=== PATIENT | female | born 1935 | race Two or more races ===

== ENCOUNTER 2020-12-14 09:39 | Outpatient (CLI) | payer MEDICARE ==
--- NOTE | 2020-12-14 10:36 | DEXA Report ---
PROCEDURE: Dexa Spine and/or Hip INDICATIONS: OSTEOPOROSIS SCREENING TECHNIQUE: Dual energy x-ray absorptiometry (DXA) was performed on a AFAR System. Regions measur ed are the AP Spine, femoral neck, and if needed forearm. COMPARISON: None. FINDINGS: Lumbar Spine: Bone Mineral Density 0.956 g/cm/cm,T score -1.9. Left Hip: Bone Mineral Density 0.636 g/cm/cm,T score -3.0. Left Femoral Neck: Bone Mineral Density 0.597 g/cm/cm, T score -3.2. (T score greater or equal to -1.0: NORMAL) (T score from -1.1 to -2.4: OSTEOPENIA) (T score less than or equal to -2.5 to: OSTEOPOROSIS) Impression: Osteoporosis. Patients with diagnosis of osteoporosis or osteopenia should have regular bone mineral density assess ment. For those eligible for Medicare, routine testing is allowed once every 2 years. Testing frequ ency can be increased for patients who have rapidly progressing disease or for those who are receivin g medical therapy to restore bone mass. Reviewed by: Junito Leal MD on 12/14/2020 10:34 AM PDT Approved by: Junito Leal MD on 12/14/2020 10:34 AM PDT Station ID: [id number]
== END 2020-12-14 09:40 | disposition home or self-care (01) ==
LOC: DI 09:39
PROVIDERS: ATTEND Internal Medicine
DX: Z13.820 Encounter for screening for osteoporosis (principal); M81.0 Age-related osteoporosis without current pathological fracture

== ENCOUNTER 2022-10-22 09:29 | Outpatient (CLI) | payer MEDICARE ==
[2022-10-22 10:07] LABS: CREATININE,URINE 177.2 mg/dL; MICROALBUM/CREATININE RATIO,UR 38.9 ug/mg (<30.0); MICROALBUMIN,URINE 6.9 mg/dL
[2022-10-22 10:13] LABS: CREATININE 0.9 mg/dL (0.6-1.3); POTASSIUM 3.8 mmol/L (3.5-4.5)
[2022-10-22 14:07] LABS: ESTIMATED AVERAGE GLUCOSE 186 mg/dL (70-100); HEMOGLOBIN A1c% 8.1 % (4.27-6.07)
== END 2022-10-22 09:30 | disposition home or self-care (01) ==
LOC: LAB 09:29
PROVIDERS: ATTEND Internal Medicine
DX: E11.9 Type 2 diabetes mellitus without complications (principal); Z79.4 Long term (current) use of insulin
CPT/HCPCS: 36415; 82043; 82565; 82570; 83036; 84132; 84295